=== PATIENT | male | born 1960 | race Caucasian/White ===

== ENCOUNTER 2016-12-06 13:50 | Observation (INO) ==
[2016-12-06] MEDS ORDERED: Ipratropium/Albuterol Neb 3 ML IH ONE (14:17)
[2016-12-06] MEDS ORDERED: Azithromycin 500 MG in D5% in Water 250 ML IVPB ONE (14:17)
--- NOTE | 2016-12-06 14:26 | Emergency Department Note ---
Disposition Clinical Impression: Atypical chest pain, Pneumonia Disposition: Admitted As Inpatient Condition: Fair Referrals: Vaishali Mcwilliams, AUTOMATED PROCESS OPERATOR [Primary Care Provider] - Time of Disposition: 16:08 ([facility]) SOB HPI - General Chief Complaint: ED General Medical Stated Complaint: NAUSEA AND VOMITING Time Seen by Provider: 12/06/16 13:53 Source: patient, EMS Mode of arrival: EMS Limitations: no limitations Nursing Notes Reviewed: Yes Vital Signs Reviewed: Yes - History of Present Illness Shot released from the hospital ([facility]) on Friday after having pneumonia and reported sepsis because he had bacteremia associated with the patient now presents back to the emergency room fever chills aches getting worse thick phlegm denies any blurred vision double vision week having no energy denies any chest pain but is still having cough or phlegm production denies any additional complaints with complete entire venous Pt Subjective Complaint: shortness of breath, cough, pain with inspiration Onset (ago): day(s) Context: recent illness Severity: moderate Consistency/Duration: gradually worsening Improves with: nothing Worsens with: exertion, movement, coughing Known history of: COPD Associated symptoms: Reports: pain with inspiration, fever, cough, wheezing, sputum production, other (weakness). Denies: orthopnea, lower extremity pain, polyuria, polydipsia, parasthesias, palpitations, hemoptysis, diaphoresis, nausea/vomiting, syncope, abdominal pain, rash, sense of impending doom Treatment prior to arrival: other (AB's) Cough present: Yes Cough Description: Productive, Weak Cough Frequency: Intermittent Sputum production: Yes Sputum Amount: Small Sputum Color: Green - Related Data Home Medications Medication Instructions Recorded Confirmed Albuterol Sulfate [Ventolin Hfa] 2 puff IH Q4H PRN 11/29/16 12/06/16 Cholecalciferol (D-3) [Vitamin D] 1,000 unit PO DAILY 11/29/16 12/06/16 Fexofenadine HCl 180 mg PO DAILY 11/29/16 12/06/16 Gabapentin [Neurontin] 800 mg PO QID 11/29/16 12/06/16 Lisinopril [Zestril] 10 mg PO DAILY 11/29/16 12/06/16 Ranitidine HCl [Acid Plating Stripper] 150 mg PO BID 08/04/17 08/11/17 Previous Rx's Medication Instructions Recorded Ibuprofen [Motrin] 800 mg PO Q8HR PRN #40 tablet 08/15/16 levoFLOXacin [Levaquin] 750 mg PO DAILY #7 tablet 12/02/16 Allergies Allergy/AdvReac Type Severity Reaction Status Date / Time aspirin [ASA] Allergy Rash Verified 03/11/15 00:10 All systems ED: reviewed and negative except as stated. Review of Systems: As Per HPI Constitutional: Reports: fever, weakness. Denies: chills Eyes: Denies: eye pain, eye discharge ENT ED: Denies: ear pain Cardiovascular: Denies: chest pain, palpitations Respiratory: Reports: cough, dyspnea, wheezes, sputum production Gastrointestinal: Denies: abdominal pain, nausea, vomiting Genitourinary: Denies: urgency, testicular mass Musculoskeletal: Denies: back pain Integumentary: Denies: rash Neurological: Denies: headache Psychiatric: Denies: anxiety Endocrine: Reports: fatigue Hematological/Lymphatic: Denies: easy bleeding Allergic/Immunologic: Denies: facial swelling Past Medical History - Past Medical History Attestation: Yes The following information was validated with the patient. Source: patient, old records reviewed, nursing notes reviewed Medical history: Reports: GERD, hypertension, other Surgical history: Reports: no surgical history, orthopedic, other Psychiatric history: Reports: no psych history - Social History Smoking Status: Current every day smoker Smokeless Tobacco Status: No Alcohol use: Reports: none Drug use: Reports: marijuana Physical Exam - General Limitations: no limitations General appearance: alert, in no apparent distress, other (Ill-appearing) - Head Head exam: atraumatic, normocephalic, normal inspection - Eye Eye exam: Present: normal appearance, PERRL, EOMI - ENT ENT exam: normal exam, normal oropharynx, mucous membranes moist, TM's normal bilaterally, normal external ear exam - Neck Neck exam: Present: normal inspection, full ROM, trachea midline - Chest Chest inspection: Present: normal inspection, symmetric chest wall rise - Respiratory Respiratory exam: Present: wheezes, prolonged expiratory phase - Cardiovascular Cardiovascular exam: Present: regular rate, normal rhythm, normal heart sounds - Abdominal Exam Abdominal exam: Present: soft, Non-Tender, normal bowel sounds. Absent: mass, pulsatile mass - Extremities Exam Extremities exam: Present: normal inspection, full ROM, normal capillary refill. Absent: tenderness, pedal edema - Back Exam Back exam: Present: normal inspection, full ROM. Absent: muscle spasm - Neurological Exam Neurological exam: Present: oriented X3, CN II-XII intact - Psychiatric Psychiatric exam: Present: normal affect, normal mood - Skin Skin exam: Present: warm, dry, intact, normal color, other (Flushed appearing) Course Course Narrative: he was seen and examined given antibiotics admitted to service of Dr. Malcolm transferred to [facility] Vital Signs Temperature 98.4 F 12/06/16 13:53 Pulse Rate 88 12/06/16 13:53 Respiratory Rate 18 12/06/16 13:53 Blood Pressure 118/78 12/06/16 13:53 O2 Sat by Pulse Oximetry 99 12/06/16 13:53 Temperature 98.4 F 12/06/16 13:53 Pulse Rate 89 12/06/16 15:00 Respiratory Rate 18 12/06/16 15:00 Blood Pressure 122/72 12/06/16 15:00 O2 Sat by Pulse Oximetry 97 12/06/16 15:00 Oxygen Delivery Oxygen Delivery Room Air Shortness of Breath/Dyspnea - MDM Narrative Medical decision making narrative: Failed outpatient management of a pneumonia - Differential Diagnosis Likely: acute exacerbation of chronic obstructive airways disease, pneumonia - Lab Data Lab results reviewed: Yes I reviewed the patient's lab results. Result diagrams: 12/06/16 14:31 12/06/16 14:31 Lab Results 12/06/16 12/06/16 12/06/16 Range/Units 14:31 14:31 14:31 WBC 6.3 (4.3-11.1) K/mcL RBC 4.42 (4.19-5.50) M/mcL Hgb 14.3 D (12.9-16.9) g/dL Hct 41.0 (37.5-50.1) % MCV 92.8 (83.0-100.0) fL MCH 32.4 (28.0-33.3) pg MCHC 34.9 (31.6-35.5) g/dL RDW 12.7 (11.5-14.5) % Plt Count 224 (140-400) K/mcL MPV 9.1 L (9.4-12.4) fL Immature Gran % 0.8 (0-4) % Seg Neutrophils % 64.0 % Lymphocytes % 23.8 % Monocytes % 8.3 % Eosinophils % 2.6 % Basophils % 0.5 % Neutrophils # 4.0 (1.6-8.9) K/mcL Lymphocytes # 1.5 (0.6-4.6) K/mcL Monocytes # 0.5 (0.0-1.3) K/mcL Eosinophils # 0.2 (0.0-0.6) K/mcL Basophils # 0.0 (0.0-0.2) K/mcL PT 12.1 (9.4-12.1) Seconds INR 1.1 APTT 31.4 (26.0-36.0) Seconds VBG Lactic Acid (0.5-2.2) mmol/L Sodium 137 (136-145) mEq/L Potassium 4.3 (3.5-4.5) mEq/L Chloride 108 (98-109) mEq/L Carbon Dioxide 20 (19-29) mEq/L BUN 19 (8-26) mg/dL Creatinine 0.91 (0.72-1.25) mg/dL Est GFR ( Amer) > 60 (> 60) Est GFR (Non-Af Amer) > 60 (> 60) BUN/Creatinine Ratio 21 (6-26) Glucose 94 (70-99) mg/dL Calculated Osmolality 286 (280-300) Calcium 9.4 (8.6-10.8) mg/dL 12/06/16 Range/Units 14:35 WBC (4.3-11.1) K/mcL RBC (4.19-5.50) M/mcL Hgb (12.9-16.9) g/dL Hct (37.5-50.1) % MCV (83.0-100.0) fL MCH (28.0-33.3) pg MCHC (31.6-35.5) g/dL RDW (11.5-14.5) % Plt Count (140-400) K/mcL MPV (9.4-12.4) fL Immature Gran % (0-4) % Seg Neutrophils % % Lymphocytes % % Monocytes % % Eosinophils % % Basophils % % Neutrophils # (1.6-8.9) K/mcL Lymphocytes # (0.6-4.6) K/mcL Monocytes # (0.0-1.3) K/mcL Eosinophils # (0.0-0.6) K/mcL Basophils # (0.0-0.2) K/mcL PT (9.4-12.1) Seconds INR APTT (26.0-36.0) Seconds VBG Lactic Acid 1.0 (0.5-2.2) mmol/L Sodium (136-145) mEq/L Potassium (3.5-4.5) mEq/L Chloride (98-109) mEq/L Carbon Dioxide (19-29) mEq/L BUN (8-26) mg/dL Creatinine (0.72-1.25) mg/dL Est GFR ( Amer) (> 60) Est GFR (Non-Af Amer) (> 60) BUN/Creatinine Ratio (6-26) Glucose (70-99) mg/dL Calculated Osmolality (280-300) Calcium (8.6-10.8) mg/dL - Radiology Data Radiology results reviewed: Yes I reviewed the patient's radiology results. ITS Impressions Chest CT 12/06/16 14:17 IMPRESSION: 1. COPD with no effusion. 2. Significant interval improvement of multifocal right upper lobe bronchopneumonia. 3. No significant lymphadenopathy. D/ / 12/06/2016 15:22:33 Brenden Clifton MD / [email or web address] Interpreting Provider: Brenden Clifton MD Critical Care Time Critical Care Time: No
[2016-12-06] MEDS ORDERED: 0.9 % Sodium Chloride 1,000 ML IVC SCH ×2 (14:30→17:02)
[2016-12-06 14:39] LABS: Basophils % 0.5 %; Eosinophils # 0.2 K/mcL (0.0-0.6); Eosinophils % 2.6 %; Hemoglobin 14.3 g/dL (12.9-16.9); Immature Granulocytes % 0.8 % (0-4); Lymphocytes # 1.5 K/mcL (0.6-4.6); Lymphocytes % 23.8 %; Mean Corpuscular HGB Conc 34.9 g/dL (31.6-35.5); Mean Corpuscular Hemoglobin 32.4 pg (28.0-33.3); Mean Corpuscular Volume 92.8 fL (83.0-100.0); Mean Platelet Volume 9.1 fL (9.4-12.4); Monocytes # 0.5 K/mcL (0.0-1.3); Monocytes % 8.3 %; Platelet Count 224 K/mcL (140-400); Red Blood Count 4.42 M/mcL (4.19-5.50); Red Cell Distribution Width 12.7 % (11.5-14.5)
[2016-12-06 14:48] LABS: INR 1.1; Prothrombin Time 12.1 Seconds (9.4-12.1)
[2016-12-06 14:50] LABS: Activated Partial Thrombo Time 31.4 Seconds (26.0-36.0)
[2016-12-06 14:57] LABS: BUN/Creatinine Ratio 21 (6-26); Blood Urea Nitrogen 19 mg/dL (8-26); Calcium 9.4 mg/dL (8.6-10.8); Carbon Dioxide 20 mEq/L (19-29); Chloride 108 mEq/L (98-109); Glucose 94 mg/dL (70-99); Osmolality,Calculated 286 (280-300); Potassium 4.3 mEq/L (3.5-4.5); Sodium 137 mEq/L (136-145); eGFR For African Americans > 60 (> 60); eGFR For Non-African Americans > 60 (> 60)
[2016-12-06] MEDS ORDERED: Ibuprofen 400 MG TABLET PO PRN (17:02)
[2016-12-06] MEDS ORDERED: Acetaminophen 325 MG TABLET PO PRN (17:02)
[2016-12-06] MEDS ORDERED: Ondansetron ODT 4 MG TAB.RAPDIS SL PRN (17:02)
[2016-12-06] MEDS ORDERED: Naloxone 0.4 MG/ML INJ IVP PRN (17:02)
[2016-12-06] MEDS: Gabapentin 400 MG CAPSULE PO SCH ×2 (17:25→19:32)
--- NOTE | 2016-12-06 18:20 | Internal Med History&Physical ---
Date of Encounter: 12/06/16 Time of Encounter: 17:50 Assessment and Plan (1) Dyspnea Current visit: No Status: Acute Chest CT showed improvement from previous scan 12/01/2016. He was started on Rocephin and Zithromax through emergency room. We will recheck labs in a.m. We will check room air oximetry. Qualifiers: Dyspnea type: shortness of breath Qualified Code(s): R06.02 - Shortness of breath; R06.00 - Dyspnea, unspecified; R06.01 - Orthopnea (2) Hypertension Current visit: No Status: Chronic We will continue lisinopril and monitor blood pressure. Qualifiers: Hypertension type: essential hypertension Qualified Code(s): I10 - Essential (primary) hypertension Internal Medicine - H&P: HPI Chief complaint: Dyspnea Admitted From: Home Plans for Post Hospital Care: Home History of present illness: Mr. Crockett is a 56 year old male who came to emergency room stating he had dyspnea onset earlier today while at rest. He had slight cough with little productivity. When he did not improve he decided to come to emergency room. He was evaluated and admitted to [facility] floor for ongoing care needs. He was hospitalized at [facility] November 29- with a diagnosis of pneumonia. He was given Levaquin 750 mg daily for 7 days at discharge. He states he has taken these as directed. His respiratory history is significant for having smoked since age 15 up to 2 packs per day. He denies having PFTs and does not use home oxygen. He states his dyspnea slightly improved at the present time. Past Med Surg Social Fam HX - Past Medical History Medical history: GERD, hypertension, other Psychiatric history: no psych history - Past Surgical History Surgical History: no surgical history, orthopedic, other - Social History Smoking Status: Current every day smoker Packs per day: 0.5 Smokeless Tobacco Status: No Alcohol use: none Drug use: marijuana - Family History Father Family Member Ethnicity: Non- Living Status: Still Living Hx Family Cardiac Disorders: Yes Mother Hx Family Cardiac Disorders: Yes (Hypotension) Internal Medicine - H&P: Meds Ibuprofen [Motrin] 800 mg PO Q8HR PRN #40 tablet 08/15/16 [Rx] Albuterol Sulfate [Ventolin Hfa] 2 puff IH Q4H PRN 11/29/16 [History] Cholecalciferol (D-3) [Vitamin D] 1,000 unit PO DAILY 11/29/16 [History] Fexofenadine HCl 180 mg PO DAILY 11/29/16 [History] Gabapentin [Neurontin] 800 mg PO QID 11/29/16 [History] Lisinopril [Zestril] 10 mg PO DAILY 11/29/16 [History] Ranitidine HCl [Acid Iron Worker Foreman] 150 mg PO BID 11/29/16 [History] levoFLOXacin [Levaquin] 750 mg PO DAILY #7 tablet 12/02/16 [Rx] Allergies aspirin [ASA] Allergy (Verified 03/11/15 00:10) Rash All Systems PM: A 10-system review of systems was performed and is negative for pertinent findings except as documented above in the HPI. Review of systems: Gen.: He states his weight has increased approximately 20 pounds in the past year, unintentional Cardiovascular: He has history of hypertension but denies MA heart failure angina DVT or pulmonary embolus Respiratory: As per history of present illness GI: He has hepatitis C and GERD. Denies other disorders of his liver gallbladder or exocrine pancreas : He has BPH symptoms. He denies other kidney or bladder disorders Neurologic: He denies large distribution strokes or seizures Endocrine: He denies diabetes or thyroid disease or hyperlipidemia Hematology/oncology: Denies blood disorders cancers or anemia Psychiatric: He denies anxiety depression or other mental health issues Musk skeletal: He has DJD and RLS. He denies gout or other bone joint or muscle disorders. - Constitutional Vitals: Temp Pulse Resp BP Pulse Ox 97.5 F L 98 16 117/78 100 12/06/16 17:19 12/06/16 17:19 12/06/16 17:19 12/06/16 17:19 12/06/16 17:19 Exam: Gen.: He is a well-developed well-nourished male who appears in no severe distress at present time HEENT: Head is atraumatic normocephalic. Eyes: EOMI. There is no scleral icterus. Mouth: Mucosa is moist. Neck: Supple and nontender. There is no thyromegaly or adenopathy noted. Heart: Regular without murmurs gallops or ectopics Lungs: No wheezes or crackles are heard. Abdomen: Soft and nontender. No masses or guarding noted. Extremities: There is no cyanosis edema or clubbing noted. Dorsalis pedis and posttibial pulses are trace palpable bilaterally. Neurologic: Mental status: He is talkative and a good historian. Cranial nerves : Smile is symmetric. Forehead wrinkles bilaterally. Tongue protrudes midline. EOMI. Motor: There is no pronator drift. Cerebellar: Finger to nose is intact bilaterally. Skin: Warm and dry Internal Med - H&P Results - Labs CBC & Chem 7: 12/06/16 14:31 12/06/16 14:31
[2016-12-06] MEDS ORDERED: *HR* HYDROcodone/Acet 5/325 mg TABLET PO PRN (18:52)
[2016-12-06] MEDS: Famotidine 20 MG TABLET PO SCH (19:32)
[2016-12-06] MEDS: *HR* HYDROcodone/Acet 5/325 mg TABLET PO PRN (20:23)
[2016-12-07] MEDS: *HR* HYDROcodone/Acet 5/325 mg TABLET PO PRN ×3 (04:15→12:34)
[2016-12-07 04:35] LABS: Basophils % 0.6 %; Eosinophils # 0.2 K/mcL (0.0-0.6); Eosinophils % 3.1 %; Hemoglobin 13.5 g/dL (12.9-16.9); Immature Granulocytes % 1.1 % (0-4); Lymphocytes % 30.2 %; Mean Corpuscular HGB Conc 34.6 g/dL (31.6-35.5); Mean Corpuscular Hemoglobin 32.3 pg (28.0-33.3); Mean Corpuscular Volume 93.3 fL (83.0-100.0); Mean Platelet Volume 9.1 fL (9.4-12.4); Monocytes # 0.7 K/mcL (0.0-1.3); Neutrophils # 3.6 K/mcL (1.6-8.9); Platelet Count 226 K/mcL (140-400); Red Blood Count 4.18 M/mcL (4.19-5.50)
[2016-12-07 04:52] LABS: BUN/Creatinine Ratio 18 (6-26); Blood Urea Nitrogen 17 mg/dL (8-26); Calcium 8.4 mg/dL (8.6-10.8); Carbon Dioxide 21 mEq/L (19-29); Chloride 111 mEq/L (98-109); Glucose 107 mg/dL (70-99); Osmolality,Calculated 294 (280-300); Sodium 141 mEq/L (136-145); eGFR For African Americans > 60 (> 60); eGFR For Non-African Americans > 60 (> 60)
[2016-12-07 06:59] VITALS: BP 120/74
[2016-12-07] MEDS: Famotidine 20 MG TABLET PO SCH (08:24)
[2016-12-07] MEDS: Gabapentin 400 MG CAPSULE PO SCH ×2 (08:25→12:34)
[2016-12-07] MEDS ORDERED: Loratadine 10 MG TABLET PO SCH (09:00)
[2016-12-07] MEDS ORDERED: Cholecalciferol (D-3) 1,000 UNIT TABLET PO SCH (09:00)
--- NOTE | 2016-12-07 09:13 | Discharge Summary ---
Date of Encounter: 12/07/16 Time of Encounter: 09:05 - Discharge Diagnosis (1) Dyspnea Priority: Primary Status: Acute Qualifiers: Dyspnea type: shortness of breath Qualified Code(s): R06.02 - Shortness of breath; R06.00 - Dyspnea, unspecified; R06.01 - Orthopnea (2) Hypertension Priority: Secondary Status: Chronic Qualifiers: Hypertension type: essential hypertension Qualified Code(s): I10 - Essential (primary) hypertension - Discharge Medications Home Medications: Ibuprofen [Motrin] 800 mg PO Q8HR PRN #40 tablet 08/15/16 [Rx] Albuterol Sulfate [Ventolin Hfa] 2 puff IH Q4H PRN 11/29/16 [History] Cholecalciferol (D-3) [Vitamin D] 1,000 unit PO DAILY 11/29/16 [History] Fexofenadine HCl 180 mg PO DAILY 11/29/16 [History] Gabapentin [Neurontin] 800 mg PO QID 11/29/16 [History] Lisinopril [Zestril] 10 mg PO DAILY 11/29/16 [History] Ranitidine HCl [Acid Garage Supervisor] 150 mg PO BID 11/29/16 [History] levoFLOXacin [Levaquin] 750 mg PO DAILY #7 tablet 12/02/16 [Rx] Allergies/Adverse Reactions: Allergies aspirin [ASA] Allergy (Verified 03/11/15 00:10) Rash Date of admission: 12/06/16 16:26 Primary care physician: Vaishali Mcwilliams CNP - Patient Status Disposition: Home, Self-Care Condition: Fair Functional capacity at discharge: independent ambulation Overall status at discharge: patient is progressing back to baseline - Discharge Instructions Follow Up With: Vaishali Mcwilliams CNP [Primary Care Provider] - 1 week - Diet and Activity Activity: resume usual activities as tolerated Diet: advance to your usual diet Hospital course: Mr. Crockett is a 56 year old male who came to emergency room stating he had dyspnea onset earlier today while at rest. He had slight cough with little productivity. When he did not improve he decided to come to emergency room. He was evaluated and admitted to [facility] floor for ongoing care needs. Initial orders were written by the emergency room physician. I saw on December 06 and performed the history and physical. He was given a dose of Rocephin and Zithromax in emergency room. He remained afebrile during his hospital stay and vital signs were stable otherwise. Room air oximetry was checked on 6 minute walk with saturations remaining satisfactory. Bn peptide returned normal at 16 on the morning of 12/07/2016. When I saw him on December 07 I felt he was stable for discharge home. He will follow with his PCP Vaishali Mcwilliams CNP within 1 week. I encouraged him strongly to discontinue smoking. He will resume Levaquin given him from [facility] discharge. - Time Spent with Patient Total time spent providing and/or coordinating discharge services: - Constitutional Vitals: Temp Pulse Resp BP Pulse Ox 98.5 F 68 16 120/74 97 12/07/16 06:57 12/07/16 06:57 12/07/16 06:57 12/07/16 06:57 12/07/16 06:57
[2016-12-07] MEDS ORDERED: Azithromycin 500 MG in D5% in Water 250 ML IVPB SCH (15:00)
== END 2016-12-07 13:06 | disposition home or self-care (01) ==
LOC: EMEROOPIK 13:50 → INPPIK 13:50
PROVIDERS: ADMIT Internal Medicine; ATTEND Internal Medicine